=== PATIENT | female | born 2005 | race Caucasian/White ===

== ENCOUNTER 2024-12-16 16:35 | Emergency (ER) | payer BC ==
[~2024-12-16] VITALS: Ht 162.6 cm; Wt 61.7 kg
[2024-12-16 17:12] LABS: BASOPHILS % 0.7 % (0.0-1.0); EOSINOPHILS % 5.1 % (0.0-6.0); LYMPHOCYTES % 34.7 % (18.0-39.1); MONOCYTES % 5.1 % (4.4-11.3); NEUTROPHILS % 54.2 % (38.7-80.0); RED CELL DISTRIBUTION WIDTH 12.2 % (11.7-14.4)
[2024-12-16] MEDS: SODIUM CHLORIDE 0.9% 1000ML 1,000 ML IV ONE (17:24)
[2024-12-16 17:25] LABS: EST GLOMERULAR FILTRATION RATE 95.0 ML/MIN (>=60)
[2024-12-16] MEDS: INSULIN REGULAR, HUMAN 100 UNIT/1 ML IV STA (18:09)
[2024-12-16] MEDS ORDERED: HUMALOG100 UNIT/1 IJ (18:22)
[2024-12-16 18:30] VITALS: PULSE 86; RESP 16; TEMP 98.2; O2SAT 100
[2024-12-17 09:51] LABS: ABG BASE EXCESS -1.0 mmol/L (-2 - 3); ABG HCO3 24 mmol/L (22-26); ABG OXYGEN SATURATION 82.0 % (95-98); ABG PCO2 39 mmHg (35-45); ABG PH 7.40 (7.35-7.45); ABG PO2 47 mmHg (80-105); ABG TCO2 25
== END 2024-12-16 18:42 | disposition home or self-care (01) ==
LOC: ER 17:42
DX: E11.65 Type 2 diabetes mellitus with hyperglycemia (principal); R53.1 Weakness; R53.81 Other malaise; F41.9 Anxiety disorder, unspecified; F32.A Depression, unspecified; F90.9 Attention-deficit hyperactivity disorder, unspecified type
CPT/HCPCS: 36415; 80053; 82805; 82948; 83735; 84702; 85025; 99284; J7030